=== PATIENT | male | born 1995 | race Caucasian/White ===

== ENCOUNTER 2018-12-25 05:30 | Inpatient (IN) | payer OTHER ==
[~2018-12-25] VITALS: Ht 165.1 cm; Wt 62.0 kg
[~2018-12-25 05:30] MED LIST: ALBU18HF INHALATION; ALBU8.5H8 INH; ASC500 PO; DEFE360T PO; DOCU-144 PO; FER325 PO; HYDR-3601 ORAL; HYDR500C3 PO; IBUP-1542 ORAL; LEVO750T25 PO; SITA1TAB PO; TEST200V19 INJ
[2018-12-25] MEDS ORDERED: SOD CHLORIDE 0.9% 0 ML IV ONE (07:20)
[2018-12-25] MEDS ORDERED: ACETAMINOPHEN 500 MG TAB PO STA (07:24)
[2018-12-25] MEDS ORDERED: DIPHENHYDRAMINE 50 MG INJ IV ONE (07:30)
[2018-12-25] MEDS ORDERED: ONDANSETRON 4 MG INJ IV PRN (08:00)
[2018-12-25] MEDS ORDERED: ACETAMINOPHEN 325 MG TAB PO PRN (08:00)
[2018-12-25] MEDS ORDERED: HYDROmorphONE 2 MG/ML SYG IV STA (09:22)
[2018-12-25 11:00] VITALS: BP 129/59; PULSE 102; RESP 18
[2018-12-25 11:15] VITALS: BP 116/59; PULSE 84; RESP 18
[2018-12-25] MEDS ORDERED: METHYLPREDNISOLONE 125 MG INJ IV STA (11:56)
[2018-12-25 11:58] VITALS: Ht 165.1 cm; Wt 62.0 kg
[2018-12-25] MEDS ORDERED: morphine 4 MG/ML VIAL IV PRN (12:00)
[2018-12-25 14:22] VITALS: BP 106/53; PULSE 74; RESP 15
[2018-12-25 19:00] VITALS: BP 106/53; PULSE 87; RESP 18
[2018-12-26] MEDS ORDERED: ALBUTEROL HFA 8 GM INHALER INH PRN
[2018-12-26] MEDS ORDERED: DIPHENHYDRAMINE 50 MG INJ IV PRN
[2018-12-26] MEDS: SOD CHLORIDE 0.9% 1,000 ML IV SCH ×2 (00:54→10:14)
[2018-12-26 01:03] VITALS: BP 105/50; PULSE 92; RESP 18
[2018-12-26 08:14] VITALS: BP 102/60; PULSE 76; RESP 15
[2018-12-26] MEDS ORDERED: HYDROXYUREA 500 MG CAP PO SCH (09:00)
[2018-12-26] MEDS ORDERED: DOCUSATE SODIUM 100 MG CAP PO SCH (09:00)
[2018-12-26 12:30] VITALS: BP 101/53; PULSE 85; RESP 15
[2018-12-26] MEDS ORDERED: EPOETIN ALFA-EPBX (NON-ESRD 10,000 UNIT/ML VIAL SC ONE (15:00)
== END 2018-12-26 16:50 | disposition home or self-care (01) | DRG 812 ==
LOC: E/R 05:30 → MS3 07:58
PROVIDERS: ADMIT Internal Medicine; ATTEND Family Medicine
PROC: 30233N1 Transfusion of Nonautologous Red Blood Cells into Peripheral Vein, Percutaneous Approach (ICD-10-PCS; principal; 2018-12-25)
DX: D57.00 Hb-SS disease with crisis, unspecified (principal)
CPT/HCPCS: 36430; 71045; 80048; 80053; 81001; 83540; 83735; 84484; 84703; 85025; 85045; 85610; 85730; 86078; 86644; 86704; 86706; 86803; 86850; 86900; 86901; 86920; 87081; 87340; 93005; J1170; J1200; J2930; J7030; J7040; P9016

== ENCOUNTER 2019-02-12 18:54 | Emergency (ER) | payer OTHER ==
[~2019-02-12] VITALS: Ht 160 cm; Wt 55.3 kg
[~2019-02-12 18:54] MED LIST changes: -ASC500 PO; -DOCU-144 PO; -FER325 PO; -LEVO750T25 PO; -SITA1TAB PO
[2019-02-12 19:04] VITALS: Ht 160 cm; Wt 55.3 kg
[2019-02-12] MEDS ORDERED: HYDROmorphONE 0.5 MG/0.5 ML SYG IV STA ×2 (20:01→21:29)
[2019-02-12] MEDS ORDERED: SOD CHLORIDE 0.9% 1,000 ML IV ONE ×2 (20:30→21:30)
[2019-02-12 22:47] VITALS: BP 100/57; PULSE 85; RESP 15
== END 2019-02-12 22:49 | disposition home or self-care (01) ==
LOC: E/R 18:54
DX: D57.00 Hb-SS disease with crisis, unspecified (principal); J45.909 Unspecified asthma, uncomplicated
CPT/HCPCS: 36415; 71045; 80048; 81003; 84484; 85025; 85045; 93005; 96361; 96374; 96376; J1170; J7030; Z7502